=== PATIENT | female | born 1985 | race Caucasian/White ===

== ENCOUNTER 2017-10-20 10:35 | Emergency (ER) | payer MEDICAID ==
[~2017-10-20] VITALS: Ht 170.2 cm; Wt 75.2 kg
[2017-10-20 10:38] VITALS: BP 125/82
== END 2017-10-20 11:36 | disposition home or self-care (01) ==
LOC: ED 11:19
DX: J02.9 Acute pharyngitis, unspecified (principal)
CPT/HCPCS: 71046; 99284

== ENCOUNTER 2018-02-17 11:05 | Emergency (ER) | payer BC, MEDICAID ==
[~2018-02-17] VITALS: Ht 170.2 cm; Wt 77.4 kg
[2018-02-17] MEDS ORDERED: ONDANSETRON ODT 4 MG PO ONE (11:30)
[2018-02-17] MEDS ORDERED: HYDROmorphone 1 MG/ML, 1ML IM ONE (11:30)
[2018-02-17] MEDS ORDERED: ONDANSETRON ODT 4 MG ONE (11:37)
[2018-02-17] MEDS ORDERED: HYDROmorphone 2 MG/ML, 1ML ONE (11:37)
[2018-02-17] MEDS ORDERED: LORazepam 1MG TABLET ONE (12:54)
[2018-02-17 12:59] VITALS: BP 114/63
[2018-02-17] MEDS ORDERED: LORazepam 1MG TABLET PO ONE (13:00)
[2018-02-18] MEDS ORDERED: IBUP-1223 PO (10:43)
[2018-02-18] MEDS ORDERED: CARB100T4 PO (10:43)
== END 2018-02-17 14:46 | disposition home or self-care (01) ==
LOC: ED 14:19
DX: G43.C0 Periodic headache syndromes in child or adult, not intractable (principal); G50.0 Trigeminal neuralgia; G93.5 Compression of brain
CPT/HCPCS: 70450; 96372; 99284; J1170; Q0162

== ENCOUNTER 2018-04-11 10:07 | Outpatient (CLI) | payer OTHER, MEDICAID ==
[~2018-04-11 10:07] MED LIST: CARB100T4 PO; IBUP-1223 PO
== END 2018-04-11 23:59 | disposition home or self-care (01) ==
LOC: RAD 10:07
PROVIDERS: ATTEND Nurse Practitioner Family
DX: G45.9 Transient cerebral ischemic attack, unspecified (principal); G93.5 Compression of brain
CPT/HCPCS: 70551